=== PATIENT | female | born 1980 ===

== ENCOUNTER 2021-04-25 08:24 | Outpatient (CLI) | payer OTHER | END 2021-04-25 08:35 | disposition home or self-care (01) | LOC: SONOGRAMA 08:24 | PROVIDERS: ATTEND Specialist | DX: R10.84 Generalized abdominal pain (principal) ==

== ENCOUNTER 2021-05-07 07:44 | Outpatient (CLI) | payer OTHER | END 2021-05-07 08:18 | disposition home or self-care (01) | LOC: NUCLEAR 07:44 | PROVIDERS: ATTEND Specialist | DX: R10.10 Upper abdominal pain, unspecified (principal); K82.8 Other specified diseases of gallbladder; K81.1 Chronic cholecystitis | CPT/HCPCS: 78226; A9537; J2805 ==